=== PATIENT | female | born 2000 | race Two or more races ===

== ENCOUNTER 2022-08-26 16:08 | Outpatient (REF) | payer OTHER, SELFPAY ==
[2022-08-26 16:22] LABS: MANUAL DIFF FLAG NO
[2022-08-26 17:56] LABS: Basophils Percent Auto 0.4 % (0-2); Eosinophils Absolute Auto 0.1 X10*3/uL (0.0-0.4); Eosinophils Percent Auto 1.1 % (0-4); Hematocrit 39.6 % (37.0-47.0); Hemoglobin 13.1 g/dl (12.0-16.0); Imm Gran Abs Auto 0.01 X10*3/uL (0.00-0.03); Imm Gran Pct Auto 0.2 % (0.0-0.4); Lymphocytes Absolute Auto 2.2 X10*3/uL (1.2-4.9); Lymphocytes Percent Auto 38.7 % (20-40); Mean Corpuscular HGB Conc 33.1 g/dl (31.0-35.0); Mean Corpuscular Hemoglobin 28.7 pg (27.0-33.0); Mean Corpuscular Volume 86.8 fL (80.0-98.0); Mean Platelet Volume 9.4 fL (9.4-12.3); Monocytes Absolute Auto 0.3 X10*3/uL (0.1-1.2); Monocytes Percent Auto 5.1 % (2-11); Neutrophils Absolute Auto 3.1 x10*3/uL (2.0-8.3); Neutrophils Percent Auto 54.5 % (45-73); Platelet Count 352 X10*3/uL (160-400); Red Blood Count 4.56 X10*6/uL (4.20-5.50); Red Cell Distribution Width 13.9 % (11.0-16.0); White Blood Count 5.6 X10*3/uL (4.8-10.8)
[2022-08-26 18:52] LABS: Alanine Aminotransferase 10 U/L (0-31); Anion Gap 14 (12-20); Aspartate Amino Transferase 15 U/L (5-31); Blood Urea Nitrogen 13 mg/dL (9-16); Calcium 9.3 mg/dL (8.4-10.2); Carbon Dioxide 22 mmol/L (22-29); Chloride 108 mmol/L (96-108); Cholesterol 125 mg/dL; Estimated Glomerular Filt Rate > 60; Glucose Fasting 83 mg/dL (60-99); HDL Cholesterol 45 mg/dL; Iron 106 mcg/dL (30-160); LDL Cholesterol Calculated 66 mg/dl; Percent Iron Saturation 24 % (15-50); Potassium 3.8 mmol/L (3.3-5.1); Sodium 140 mmol/L (135-145); Total Iron Binding Capacity 449 mcg/dL (228-428); Triglycerides 74 mg/dL; Unsaturated Iron Binding 343 ug/dL
[2022-08-26 18:54] LABS: Vitamin D 25-OH Total 21.1 ng/mL (>30)
[2022-08-27 05:32] LABS: HBS Num1 0.66 mIU/mL (0-7.99); HBc Num1 0.13 S/CO (0.00-0.79); HBsAGNum1 0.33 S/CO (0.00-0.99); Hepatitis B Core Antibody Nonreactive (Nonreactive); Hepatitis B Surface Antigen Negative (Negative); ~HepC Num1 0.16 S/CO (0.00-0.79); ~Hepatitis B Surface Antibody NONREACTIVE (Nonreactive); ~Hepatitis C Antibody Nonreactive (Nonreactive)
== END 2022-08-26 16:09 | disposition home or self-care (01) ==
LOC: HO.LAB 16:08
PROVIDERS: PCP Internal Medicine; Visit Provider Internal Medicine
DX: Z00.01 Encounter for general adult medical examination with abnormal findings (principal); D50.9 Iron deficiency anemia, unspecified; Z83.1 Family history of other infectious and parasitic diseases
CPT/HCPCS: 36415; 80048; 80061; 82306; 83540; 84450; 84460; 85025; 86704; 86706; 86803; 87340

== ENCOUNTER 2023-07-08 16:07 | Outpatient (REF) | payer OTHER, SELFPAY ==
[2023-07-09 14:06] LABS: Bacterial Vaginosis PCR NEGATIVE (Negative); Candida Group PCR DETECTED (Not Detect); Candida glab krusei PCR NOT DETECTED (Not Detect); Trichomonas vaginalis PCR NOT DETECTED (Not Detect)
[2023-07-09 14:50] LABS: CT PCR NOT DETECTED (Not Detect.); NG PCR NOT DETECTED (Not Detect.)
== END 2023-07-08 16:08 | disposition home or self-care (01) ==
LOC: HO.LAB 16:07
PROVIDERS: Visit Provider Internal Medicine
DX: Z11.3 Encounter for screening for infections with a predominantly sexual mode of transmission (principal)
CPT/HCPCS: 0352U; 0353U

== ENCOUNTER 2023-07-08 16:07 | Outpatient (AMB) | payer OTHER, SELFPAY ==
[2023-07-08 16:21] VITALS: BP 112/66; PULSE 82; TEMP 36.6; O2SAT 98
--- NOTE | 2023-07-08 16:21 | AM.OFFWIN_ITS ---
Intake Vital Signs 07/08/23 16:21 Height 4 ft 10 in BP 112/66 Blood Pressure Location Rt brachial Position Sitting Pulse 82 Pulse Source Pulse Oximeter Temp 97.9 F Temp Source Oral Pulse Oximetry (%) 98 Intake Visit Reasons: EP STD check, bacterial infection Intake Note: pt is here for std check, possible bacterial infection requesting full STD panel Patient Tobacco Use Status: Former Tobacco user Allergies No Known Allergies Allergy (Verified 07/10/23 04:48) Medication List - Last Reconciled 07/10/23 by Lester Jung MD fluconazole 150 mg PO Q3D 2 doses Do you need a note to return to daycare/school/sports/work: No HPI EP STD check, bacterial infection HPI Details 22 yr old female presents to the office for a sick visit. Pt requests a test for STD. She has been sexually active with a single partner. Heterosexual. Not using protection. Last week, she was at another Urgent Care and tested negative for BV. She recvd and completed a 7 day course of metronidazole. Currently, reporting symptoms of burning sensation near the vaginal area. No discharge. [facility] Medical History On Depo-Provera for contraception Microcytic anemia Family history of hepatitis B Skin lesion of left upper extremity Family History (Updated 08/05/22 @ 00:39 by Jami Glasgow MD) Mother Hepatitis B Social History Housing: House Patient Tobacco Use Status: Former Tobacco user e-Cigarette/Vaping Use: Never Used service: No Current occupation: [employer] leave Cognitive needs: No Hearing needs: No Vision needs: Yes Female Reproductive History Menstrual Age of Menarche: 14 Physical Exam Vital Signs: Last Vital Signs Temp 97.9 F 07/08/23 16:21 Pulse 82 07/08/23 16:21 BP 112/66 07/08/23 16:21 Pulse Ox 98 07/08/23 16:21 Assessment & Plan Assessment & Plan (1) Dysuria: Code(s): R30.0 - Dysuria Plan: A screening panel for STI ordered. Based on the results medications will be started. Coding Level of Care Code Est Pt Level 3 (22879) Diagnoses Dysuria R30.0
== END 2023-07-08 17:04 | disposition home or self-care (01) ==
PROVIDERS: PCP Internal Medicine; Visit Provider Internal Medicine
DX: R30.0 Dysuria (principal)
CPT/HCPCS: 99213

== ENCOUNTER 2023-07-30 11:23 | Outpatient (AMB) | payer OTHER, SELFPAY ==
--- NOTE | 2023-07-30 11:25 | A.OFFPC_ITS ---
Vital Signs 07/30/23 11:30 Height 4 ft 10 in Weight 160 lb BMI 33.4 BP 118/70 Blood Pressure Location Rt brachial Position Sitting Pulse 93 Pulse Source Pulse Oximeter Pulse Oximetry (%) 98 Oxygen Delivery Method Room Air Intake Visit Reasons: PE Intake Note: pt is here for annual PE. Has not had pap Allergies No Known Allergies Allergy (Verified 07/30/23 16:49) Medication List - Last Reconciled 07/30/23 by Jami Glasgow MD valacyclovir 1,000 mg PO BID PRN Tobacco use date assessed: 07/30/23 Dental Screening Dental Screen Date: 07/30/23 Did you have a dental visit in the last 12 months?: No Did you have a dental problem in the last 6 months where you did not have access to dental care?: No Was dental information given to patient?: No HPI PE HPI Details 22-year-old lady, new to practice, here to establish care with new provider. She was recently seen at the ER at [facility] 07/09/2023 complaining of vaginal irritation and diagnosed to have genital herpes. She was prescribed valacyclovir 1000 mg twice a day for 10 days STI screening came back negative for syphilis HIV, gonorrhea chlamydia , but is positive for bacterial vaginosis. Patient states that the lesion in her vaginal area has completely resolved. She is sexually active, does not use any barrier contraceptive. Was on Depo- Provera but had it discontinued 5 months ago as she gained approximately 40 lb i n the last 8 months. Goes to [facility] for her routine Pap and pelvic exam and that is also who she delivered her 1st child last year. Complains of intermittent episode of posterior neck and up per back pain, worse with standing or bending for extended periods of time. This has been present now for the last several months ever since she started gaining weight, no history of trauma. [facility] Medical History (Updated 07/30/23 @ 16:58 by Jami Glasgow MD) Upper back pain Obesity (BMI 30.0-34.9) History of herpes simplex type 2 infection On Depo-Provera for contraception Microcytic anemia Family history of hepatitis B Surgical History (Updated 07/30/23 @ 11:36 by Aj Palomares CMA) No pertinent past surgical history Family History Mother Hepatitis B Social History Housing: House Patient Tobacco Use Status: Never used Tobacco e-Cigarette/Vaping Use: Never Used service: No Current occupational status: unemployed Current occupational exposures/hazards: No Cognitive needs: No Hearing needs: No Vision needs: Yes Female Reproductive History Menstrual Age of Menarche: 14 Date of last menstrual period: 07/06/23 Questionnaire PHQ-9 Over the last 2 weeks, how often have you been bothered by any of the following problems? 1. Little interest or pleasure in doing things: not at all 2. Feeling down, depressed, or hopeless: not at all 3. Trouble falling or staying asleep, or sleeping too much: not at all 4. Feeling tired or having little energy: not at all 5. Poor appetite or overeating: not at all 6. Feeling bad about yourself - or that you are a failure or have let yourself or your family down: not at all 7. Trouble concentrating on things, such as reading the newspaper or watching television: not at all 8. Moving or speaking so slowly that other people could have noticed. Or the o pposite - being so fidgety or restless that you have been moving around a lot more than usual: not at all 9. Thoughts that you would be better off or of hurting yourself in some way: not at all Total score: 0 Depression Screening Interpretation: Negative Depression Screening Done: Yes 36722 - PHQ-9 Billing: Yes Source: Developed by Drs. Dino Arreaga, Ines Villarreal, Sukhdev Wolfe and colleagues, with an educational carmen from [employer] Thrive Questionnaire Date Thrive assessed: 07/30/23 I am a: Patient What is your living situation today?: I have a steady place to live Within the past 12 months, did the food you bought not last and you didn't have the money to get more?: Never true Within the past 12 months, did you worry whether your food would run out before you got money to buy more?: Never true Do you have trouble paying for medicines?: No Do you have trouble getting transportation to medical appointments?: No Do you have trouble paying your heating and electricity bill?: No Do you have trouble taking care of your child, family member or friend?: No Do you have trouble with day-to-day activities such as bathing, preparing meals, shopping, managing finances, etc.?: No Are you currently unemployed and looking for a job?: No Are you interested in more education?: No Please select the resources that you would like help with: None Currently or been in a relationship where the following occur: no concerns reported THRIVE Score: 0 AUDIT C Alcohol Use Questionnaire (AUDIT-C) 1. How often do you have a drink containing alcohol?: 2-4 times a month 2. How many drinks containing alcohol do you have on a typical day when you are drinking?: 1 or 2 3. How often do you have six or more drinks on one occasion?: Never Total Score: 2 Score Reviewed/Action Taken: No LIV-7 AMB Questionnaire LIV-7 Date LIV - 7 assessed: 07/30/23 Feeling nervous, anxious, or on edge: 0 = Not at all Not being able to stop or control worryin = Not at all Worrying too much about different things: 0 = Not at all Trouble relaxin = Not at all Being so restless that it is hard to sit still: 0 = Not at all Becoming easily annoyed or irritable: 0 = Not at all Feeling afraid as if something awful might happen: 0 = Not at all Total LIV-7 score (0-4 normal; 5-9 mild; 10-14 moderate; 15-21 severe): 0 Source: Developed by Drs. Dino Arreaga, Ines Villarreal, Sukhdev Wolfe and colleagues, with an educational carmen from [employer] LIV-7 Assessment Billing LIV-7 Assessment Tool: LIV-7 Assessment 58349 Review of Systems Const Denies fatigue, Denies fever(s), Denies headache(s) and Denies weakness Eyes Details: Goes to [facility] Reports requires corrective lenses ENT Denies dizziness, Denies headache(s), Denies nasal congestion and Denies nasal discharge Card Denies chest pain, Denies lightheadedness, Denies palpitations and Denies dyspnea Resp Denies chest congestion, Denies cough, Denies dyspnea and Denies wheezing GI Denies abdominal pain, Denies change in bowel habits and Denies heartburn Denies hematuria, Denies urinary frequency, Denies dysuria and Denies urinary urgency Musc Reports no additional complaints Skin/Breast Reports as per HPI, Denies breast pain, Denies breast mass and Denies rash Neuro Denies dizziness, Denies headache(s) and Denies weakness Psych Reports no additional complaints Endo Denies fatigue, Denies polydipsia, Denies polyuria and Denies palpitations Boo/Lymph Denies easy bruising Aller/Immun Denies seasonal rhinorrhea and Denies wheezing Physical exam (Primary Care) Vital Signs: Last Vital Signs Pulse 93 07/30/23 11:30 BP 118/70 07/30/23 11:30 Pulse Ox 98 07/30/23 11:30 Oxygen Delivery Method Room Air 07/30/23 11:30 BMI result Body Mass Index 33.4 Tobacco/Smoking Status: Tobacco use Status Tobacco use date assessed 07/30/23 07/30/23 11:38 Patient Tobacco Use Status Never used Tobacco 07/30/23 11:38 e-Cigarette/Vaping Use Never Used 07/30/23 11:25 PHQ-9: PHQ-9 Score PHQ-9: Total score 0 07/30/23 12:20 Depression Screening Interpretation: Negative Thrive Assessment: Date of Thrive Assessment Date Thrive assessed 07/30/23 07/30/23 11:38 Currently or been in a relationship where the following occur: no concerns reported Const General: comfortable, no acute distress and Physically active Nutritional Appearance: obese Orientation/consciousness: patient oriented x3 HENMT Head: Yes normocephalic Ears: external ears normal, TM's normal bilaterally and EAC's normal General nose exam: Normal external nose present Face and sinus: Yes face symmetric Mouth: Normal oral and palatal mucosa present, lip normal, tongue normal, oropharynx normal and moist mucous membranes Eyes General: appearance normal, both eyes and all related structures Eyelids: Yes eyelids normal Conjunctivae: conjunctivae normal Sclerae: sclerae normal Pupils: Equal, round and reactive pupils present EOM: EOMs intact bilaterally Neck Neck: Yes full ROM, Yes no lymphadenopathy and Yes supple Thyroid: Thyroid normal Chest Breast/axilla inspection: Other (Bilateral nipple piercing) Resp Effort & Inspection: normal respiratory effort and able to speak in complete sentences Auscultation: clear to auscultation bilaterally Cardio Rate: regular rate Rhythm: regular rhythm Heart sounds: S1 normal heart sound present and S2 normal heart sound present GI Palpation (GI): Soft to palpation, nontender, no guarding and no masses Auscultation: normal bowel sounds General: Yes no CVA tenderness Back/Spine/Pelvis Back: no CVA tenderness and No back tenderness Skin Other: Multiple tattoos on back, upper chest, arms General skin exam: no rashes or lesions noted Neuro General: patient oriented x3 Cranial nerves: Yes Equal, round and reactive pupils present Cognition (Neuro): normal cognition Gait exam (Neuro): Normal gait present Motor exam (neuro): 5/5 motor strength present throughout Extrem General: Yes normal to inspection, Yes full ROM, Yes no joint enlargement, Yes no pedal edema and Yes normal gait Psych Appearance: grossly normal and well kempt Mental Status: mental status grossly normal Speech and movement: Normal speech and movement present Affect: normal affect Attitude: cooperative Thought process: Normal thought process present Thought content: Normal thought content present Assessment and Plan Assessment & Plan (1) Annual visit for general adult medical examination with abnormal findings: Code(s): Z00.01 - Encounter for general adult medical examination with abnormal findings Plan: Will check appropriate labs. Recommended dental visit every 6 months and regular eye exams, at least every 2 years, wears glasses for distance. Take adequate calcium in diet and vitamin-D 3 at 2000 IU per cap once a day, in addition to weight-bearing exercises to help maintain good muscle tone and weight control. Instructed to do self-breast exam, and recommended to get yearly mammogram, starting at age 40. Patient will be [facility] to schedule her routine pelvic exam and Pap smear. (2) History of herpes simplex type 2 infection: Code(s): Z86.19 - Personal history of other infectious and parasitic diseases Plan: Positive for herpes genitalis type 2 on test done at [facility], already treated with valacyclovir 1000 mg twice a day for 10 days, currently asymptomatic (3) Family history of hepatitis B: Code(s): Z83.1 - Family history of other infectious and parasitic diseases Plan: Will check hepatitis-B and C profile (4) Obesity (BMI 30.0-34.9): Code(s): E66.9 - Obesity, unspecified Plan: . Discussed need to increase activity and weight reduction. Recommended focusing on improving health instead of dieting. Mediterranean diet is a healthy diet that helps, limit food high in fat, sugar, and calories. Eat slowly, pay attention to portion sizes, plan your meals ahead of time, start regular physical activity, at least 150 minutes of moderate intensity exercise, or 90 minutes per week of vigorous exercise. Avoid alcohol use. Keeping a food diary, tracking what you eat and your physical activity can help assess what improvements you can make. There are many health problems associated with being overweight/obese, so it is important to improve your diet and exercise. There are medications and surgical options available, but Lifestyle changes are the 1st step. (5) Upper back pain: Code(s): M54.9 - Dorsalgia, unspecified Plan: X-ray of thoracic spine ordered, referred for physical therapy, strongly advised to lose weight through diet and exercise Orders: Orders PT Evaluation and Treatment Today M54.50 - Low back pain, unspecified Comprehensive [place]. Panel Fast Today E66.9 - Obesity, unspecified, Z83.1 - Family history of other infectious and parasitic diseases, Z86.19 - Personal history of other infectious and parasitic diseases Lipid Panel Today E66.9 - Obesity, unspecified, Z83.1 - Family history of other infectious and parasitic diseases, Z86.19 - Personal history of other infectious and parasitic diseases Hepatitis B,C Profile Today E66.9 - Obesity, unspecified, Z83.1 - Family history of other infectious and parasitic diseases, Z86.19 - Personal history of other infectious and parasitic diseases Vitamin D 25-OH Total Today E66.9 - Obesity, unspecified, Z83.1 - Family history of other infectious and parasitic diseases, Z86.19 - Personal history of other infectious and parasitic diseases XR thoracic spine 3V Today M54.9 - Dorsalgia, unspecified Coding Level of Care Code Est Pt Level 3 (70521) New Pt Prev Care 18-39yr(29065 Diagnoses Annual visit for general adult medical examination with abnormal findings Z00.01 History of herpes simplex type 2 infection Z86.19 Family history of hepatitis B Z83.1 Obesity (BMI 30.0-34.9) E66.9 Upper back pain M54.9 Additional Codes LIV-7 Assessment Billing - LIV-7 Assessment Tool: LIV-7 Assessment 51485 ([id number])
[2023-07-30 11:30] VITALS: BP 118/70; PULSE 93; O2SAT 98; BMI 33.4
== END 2023-07-30 12:32 | disposition home or self-care (01) ==
PROVIDERS: PCP Internal Medicine; Visit Provider Internal Medicine
DX: Z00.01 Encounter for general adult medical examination with abnormal findings (principal); M54.9 Dorsalgia, unspecified; E66.9 Obesity, unspecified; Z68.34 Body mass index [BMI] 34.0-34.9, adult; Z86.19 Personal history of other infectious and parasitic diseases; Z83.1 Family history of other infectious and parasitic diseases
CPT/HCPCS: 99213; 99395

== ENCOUNTER 2023-07-30 12:35 | Outpatient (REF) | payer OTHER, SELFPAY ==
--- NOTE | ~2023-07-30 | XR_ITS ---
EXAMINATION: XR THORACIC SPINE CLINICAL INFORMATION: Back pain. COMPARISON: None available. TECHNIQUE: 3 views of the thoracic spine were obtained. FINDINGS: Mild dextroscoliosis of the thoracic spine. Mild multilevel degenerative changes in the thoracic spine. XR/XR thoracic spine 3V IMPRESSION: Mild dextroscoliosis of the thoracic spine. Mild multilevel degenerative changes in the thoracic spine.
[2023-07-30 16:50] LABS: Alanine Aminotransferase 118 U/L (0-31); Albumin Level 4.3 g/dL (3.5-5.0); Alkaline Phosphatase 190 U/L (39-117); Anion Gap 11 (12-20); Aspartate Amino Transferase 79 U/L (5-31); Bilirubin Total 1.1 mg/dL (0.0-1.0); Blood Urea Nitrogen 14 mg/dL (9-16); Calcium 9.4 mg/dL (8.4-10.2); Carbon Dioxide 26 mmol/L (22-29); Chloride 107 mmol/L (96-108); Cholesterol 140 mg/dL (<200); Estimated Glomerular Filt Rate > 60; Glucose Fasting 100 mg/dL (60-99); HDL Cholesterol 42 mg/dL (>40); LDL Cholesterol Calculated 64 mg/dL (<100); Potassium 4.1 mmol/L (3.3-5.1); Sodium 140 mmol/L (135-145); Total Protein 7.5 g/dL (6.5-8.0); Triglycerides 172 mg/dL (<150)
[2023-07-30 16:57] LABS: Vitamin D 25-OH Total 15.3 ng/mL (>30)
[2023-07-31 03:46] LABS: HBS Num1 0.79 mIU/mL (0-7.99); HBc Num1 0.26 S/CO (0.00-0.79); HBsAGNum1 0.21 S/CO (0.00-0.99); Hepatitis B Core Antibody Nonreactive (Nonreactive); Hepatitis B Surface Antigen Negative (Negative); ~HepC Num1 0.18 S/CO (0.00-0.79); ~Hepatitis B Surface Antibody NONREACTIVE (Nonreactive); ~Hepatitis C Antibody Nonreactive (Nonreactive)
== END 2023-07-30 12:36 | disposition home or self-care (01) ==
LOC: HO.HMGCX 12:35
PROVIDERS: PCP Internal Medicine; Visit Provider Internal Medicine
DX: Z86.19 Personal history of other infectious and parasitic diseases (principal); Z83.1 Family history of other infectious and parasitic diseases; E66.9 Obesity, unspecified; M54.9 Dorsalgia, unspecified
CPT/HCPCS: 36415; 72072; 80053; 80061; 82306; 86704; 86706; 86803; 87340

== ENCOUNTER 2024-03-01 08:31 | Outpatient (AMB) | payer OTHER, SELFPAY ==
[2024-03-01 08:32] VITALS: BP 102/70; PULSE 84; O2SAT 98; BMI 34.7
--- NOTE | 2024-03-01 08:32 | A.OFFPC_ITS ---
Vital Signs 03/01/24 08:32 Height 4 ft 10 in Weight 166 lb BMI 34.7 BP 102/70 Blood Pressure Location Rt brachial Position Sitting Pulse 84 Pulse Source Pulse Oximeter Pulse Oximetry (%) 98 Oxygen Delivery Method Room Air Intake Visit Reasons: Stress incontinence, weight gain Intake Note: Pt is here today c/o stress incontinence Allergies No Known Allergies Allergy (Verified 03/01/24 09:00) Medication List - Last Reconciled 03/01/24 by Jami Glasgow MD No Known Home Meds Tobacco use date assessed: 03/01/24 Dental Screening Dental Screen Date: 03/01/24 Did you have a dental visit in the last 12 months?: No Did you have a dental problem in the last 6 months where you did not have access to dental care?: No Was dental information given to patient?: Patient has dentist HPI HPI Comments History of Present Illness Details - The patient is a 23-year-old female pr esenting with weight management and dietary concerns. She Previously was 120 pounds before in 2022 and now is at166 lbs after , and has been having hard time losing weight.. She states that after her she was able to lose weight but gained it back again after she was started on Depo Provera.. she stopped taking it after 1 year but was unable to lose the weight. The patient reports skipping meals and has stopped consuming soda and juices. - Stress urinary incontinence occurs dur ing coughing or sneezing, beginning , and persists due to weight gain. The patient currently getting physical therapy for back pain and they have included Kegel exercises. - The patient experiences heartburn, whi ch is potentially related to dietary habits and weight. [facility] Medical History (Updated 03/01/24 @ 23:23 by Jami Glasgow MD) Stress incontinence in female Upper back pain Obesity (BMI 30.0-34.9) History of herpes simplex type 2 infection Microcytic anemia Family history of hepatitis B Surgical History No pertinent past surgical history Family History Mother Hepatitis B Social History Housing: House Patient Tobacco Use Status: Never used Tobacco e-Cigarette/Vaping Use: Never Used service: No Current occupational status: unemployed Current occupational exposures/hazards: No Cognitive needs: No Hearing needs: No Vision needs: Yes Female Reproductive History Menstrual Age of Menarche: 14 Questionnaire Thrive Questionnaire Date Thrive assessed: 07/30/23 LIV-7 AMB Questionnaire LIV-7 Date LIV - 7 assessed: 07/30/23 Source: Developed by Drs. iDno Arreaga, Ines Villarreal, Sukhdev Wolfe and colleagues, with an educational carmen from [employer]. Review of Systems Const Reports as per HPI and Reports no additional complaints Physical exam (Primary Care) Vital Signs: Last Vital Signs Pulse 84 03/01/24 08:32 BP 102/70 03/01/24 08:32 Pulse Ox 98 03/01/24 08:32 Oxygen Delivery Method Room Air 03/01/24 08:32 BMI result Body Mass Index 34.7 Tobacco/Smoking Status: Tobacco use Status Tobacco use date assessed 03/01/24 03/01/24 08:40 Patient Tobacco Use Status Never used Tobacco 03/01/24 08:33 e-Cigarette/Vaping Use Never Used 03/01/24 08:33 Thrive Assessment: Date of Thrive Assessment Date Thrive assessed 07/30/23 03/01/24 08:33 Const General: comfortable and no acute distress Nutritional Appearance: obese Orientation/consciousness: patient oriented x3 HENMT Head: Yes normocephalic Ears: external ears normal, TM's normal bilaterally and EAC's normal General nose exam: Normal external nose present Face and sinus: Yes face symmetric Mouth: Normal oral and palatal mucosa present, oropharynx normal and moist mucous membranes Eyes General: appearance normal, both eyes and all related structures Neck Neck: Yes full ROM, Yes no lymphadenopathy and Yes supple Thyroid: Thyroid normal Resp Effort & Inspection: normal respiratory effort and able to speak in complete sentences Auscultation: clear to auscultation bilaterally Cardio Rate: regular rate Rhythm: regular rhythm Heart sounds: S1 normal heart sound present and S2 normal heart sound present GI Inspection: Yes obesity Palpation (GI): Soft to palpation, nontender, no guarding and no masses Auscultation: normal bowel sounds General: Yes no CVA tenderness Back/Spine/Pelvis Back: no CVA tenderness and No back tenderness Skin Other: Multiple tattoos on back, upper chest, arms General skin exam: no rashes or lesions noted Neuro General: patient oriented x3 Cognition (Neuro): normal cognition Gait exam (Neuro): Normal gait present Motor exam (neuro): 5/5 motor strength present throughout Extrem General: Yes normal to inspection, Yes full ROM, Yes no joint enlargement, Yes no pedal edema and Yes normal gait Psych Appearance: grossly normal and well kempt Mental Status: mental status grossly normal Speech and movement: Normal speech and movement present Affect: normal affect Attitude: cooperative Thought process: Normal thought process present Thought content: Normal thought content present Coding Level of Care Code Est Pt Level 3 (39406) Diagnoses Obesity (BMI 30.0-34.9) E66.9 Stress incontinence in female N39.3 Assessment & Plan Assessment & Plan (1) Obesity (BMI 30.0-34.9): Code(s): E66.9 - Obesity, unspecified Category: Medical (2) Stress incontinence in female: Code(s): N39.3 - Stress incontinence (female) (male) Category: Medical Plan The treatment plan includes initiating phentermine therapy with thorough monitoring for adverse effects and emphasizing the need for a balanced diet and regular meals. I discussed with the patient the initiation of phentermine at 15 mg daily and explained potential side effects such as headaches, chest pain, and palpitations. Emphasized the importance of not skipping meals and avoiding sugary drinks. I explained that stress urinary incontinence likely results from weight gain , and continuing physical therapy and weight reduction efforts should help mitigate symptoms. For heartburn, I advised avoiding acidic foods, especially at night. I recommended seeing a retail store associate for further assistance with dietary management. We scheduled a follow-up in four weeks to evaluate her progress. Patient was informed and verbally consented to the use of an ambient scribe for clinic note documentation during this visit. Medications: New phentermine must administer 2 hours after breakfast 15 mg PO DAILY 30 caps 1RF E66.9 - Obesity, unspecified
== END 2024-03-01 09:46 | disposition home or self-care (01) ==
PROVIDERS: PCP Internal Medicine; Visit Provider Internal Medicine
DX: E66.9 Obesity, unspecified (principal); N39.3 Stress incontinence (female) (male); Z68.34 Body mass index [BMI] 34.0-34.9, adult

== ENCOUNTER → 2024-03-01 08:31 | Outpatient (BNVA) | payer OTHER, SELFPAY | PROVIDERS: PCP Internal Medicine; Visit Provider Internal Medicine | DX: E66.9 Obesity, unspecified (principal); N39.3 Stress incontinence (female) (male) | CPT/HCPCS: 99212 ==

== ENCOUNTER 2024-03-03 14:55 | Outpatient (RCR) | payer OTHER, SELFPAY ==
--- NOTE | 2024-01-26 17:50 | MHC.PT.EP ---
[facility] [place] Office [place] Office [place] Office [address] Zepeda [address] [phone] F: [phone] F: [phone] F: [phone] F: [phone] Physical Therapy Plan of Care Date of Evaluation: 01/26/24 Date of Surgery: Diagnosis: Low back pain; lumbago (per MD) Chronic upper back and neck pain, mild scoliosis thoracic spine (PT Dx) Assessment: Maria M is a 23 yo female who was referred by Veronica Gray PA-C for Dx of Low back pain; lumbago. PT diagnosis is upper back and neck pain with mild scoliosis of thoracic spine. Impairments include painful neck and shoulder ROM, hypomobile T/spine, TTP UT and rhomboids, and rounded shoulder posture resulting in their inability to sit or stand for long periods of time and lift or carry heavy objects. 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 Pt will benefit from skilled PT to address impairments and meet their goals. Frequency and Duration: The patient will be seen 2x/week for 4 weeks Short Term Goals: 2 weeks Patient will be able to perform HEP to independently manage condition. Patient will demonstrate neutral shoulder posture during sitting to decrease pain after 15 min. Immigration Judge Goals: 4 weeks Patient will decrease pain to 2/10 with cervical rotation to be able to drive without pain. Patient will increase rhomboids b/l MMT to 4-/5 to be able to sit for 30 min without pain. Treatment Plan: Modalities to reduce pain, spasms and effusion. Manual therapy to restore motion and function. Therapeutic exercise to improve strength and flexibility. Neuromuscular re-education for posture and balance. Therapeutic activities to return to functional activities of daily living. Electronically signed by: Karli Urban, PT, DPT Please sign and return to therapist. Thank you for your referral.
--- NOTE | 2024-04-19 10:54 | MHC.PT.DC ---
[facility] [place] Office [place] Office [place] Office [address] Maria M Zepeda [address] [phone] F: [phone] F: [phone] F: [phone] F: [phone] Physical Therapy Discharge Report Diagnosis: Low back pain; lumbago (per MD) Chronic upper back and neck pain, mild scoliosis thoracic spine (PT Dx) Date of Surgery: Date of Evaluation: 01/26/24 Date of Discharge: 04/19/24 Treatments to Date: 5 Cancellations to Date: 3 No Shows to Date: 1 Discharge Status: Improved Function Independent with HEP Patient Elected to Stop Discharge Summary: Maria M was last treated in PT on 03/03/24 and the assessment reads, Maria M does well with exercise program, added exercises for strengthening and endurance of mid back and postural musculature. She was able to tolerate increased time on cervical traction and increased wt of pull to therapeutic level. She reports her neck feels good to end session but mid back is still sore. She ceased attending PT on her own accord and is therefore discharged from PT at this time. Electronically signed by: Karli Urban, PT, DPT Please sign and return to therapist. Thank you for your referral.
== END 2024-04-19 10:55 | disposition home or self-care (01) ==
LOC: HO.PT 14:55
PROVIDERS: PCP Internal Medicine; Visit Provider Internal Medicine
DX: M54.50 Low back pain, unspecified (principal)
CPT/HCPCS: 97012; 97110; 97140; 97161; 97530; 97535

== ENCOUNTER 2024-03-31 10:50 | Outpatient (AMB) | payer OTHER, SELFPAY ==
--- NOTE | 2024-03-31 10:53 | A.OFFPC_ITS ---
Vital Signs 03/31/24 10:58 Height 4 ft 10 in Weight 164 lb BMI 34.3 BP 110/60 Blood Pressure Location Lt brachial Position Sitting Respiration 16 Pulse 73 Pulse Source Pulse Oximeter Temp 98.1 F Temp Source Oral Pulse Oximetry (%) 99 Oxygen Delivery Method Room Air Intake Visit Reasons: 4 week follow up weight, per [place] Intake Note: Pt is here today for a 4wks f/u weight Allergies No Known Allergies Allergy (Verified 03/31/24 11:05) Medication List - Last Reconciled 03/31/24 by Jami Glasgow MD phentermine 15 mg PO DAILY Tobacco use date assessed: 03/31/24 Dental Screening Dental Screen Date: 03/01/24 HPI 4 week follow up weight, per [place] HPI Details 23-year-old lady here today for follow-u p regarding her weight loss. She was started on phentermine 15 mg 1 capsule daily a month ago and already has been seen for dietary guidance with emergency services director. She has been compliant with taking her medications and has been following recommended diet, tolerating medication well, blood has lost only 2 lb in 1 month [facility] Medical History Stress incontinence in female Upper back pain Obesity (BMI 30.0-34.9) History of herpes simplex type 2 infection Microcytic anemia Family history of hepatitis B Surgical History No pertinent past surgical history Family History Mother Hepatitis B Social History Housing: House Patient Tobacco Use Status: Never used Tobacco e-Cigarette/Vaping Use: Never Used service: No Current occupational status: unemployed Current occupational exposures/hazards: No Cognitive needs: No Hearing needs: No Vision needs: Yes Female Reproductive History Menstrual Age of Menarche: 14 Questionnaire PHQ-9 Over the last 2 weeks, how often have you been bothered by any of the following problems? 1. Little interest or pleasure in doing things: not at all 2. Feeling down, depressed, or hopeless: not at all 3. Trouble falling or staying asleep, or sleeping too much: not at all 4. Feeling tired or having little energy: not at all 5. Poor appetite or overeating: not at all 6. Feeling bad about yourself - or that you are a failure or have let yourself or your family down: not at all 7. Trouble concentrating on things, such as reading the newspaper or watching television: not at all 8. Moving or speaking so slowly that other people could have noticed. Or the opposite - being so fidgety or restless that you have been moving around a lot more than usual: not at all 9. Thoughts that you would be better off or of hurting yourself in some way: not at all Total score: 0 Depression Screening Interpretation: Negative Depression Screening Done: Yes 97048 - PHQ-9 Billing: Yes Source: Developed by Drs. Dino Arreaga, Ines Villarreal, Sukhdev Wolfe and colleagues, with an educational carmen from [employer]. Thrive Questionnaire Date Thrive assessed: 07/30/23 I am a: Patient What is your living situation today?: I have a steady place to live Within the past 12 months, did the food you bought not last and you didn't have the money to get more?: Never true Within the past 12 months, did you worry whether your food would run out before you got money to buy more?: Never true Do you have trouble paying for medicines?: No Do you have trouble getting transportation to medical appointments?: No Do you have trouble paying your heating and electricity bill?: No Do you have trouble taking care of your child, family member or friend?: No Do you have trouble with day-to-day activities such as bathing, preparing meals, shopping, managing finances, etc.?: No Are you currently unemployed and looking for a job?: No Are you interested in more education?: No Please select the resources that you would like help with: None Currently or been in a relationship where the following occur: No concerns reported THRIVE Score: 0 AUDIT C Alcohol Use Questionnaire (AUDIT-C) 1. How often do you have a drink containing alcohol?: 2-4 times a month 2. How many drinks containing alcohol do you have on a typical day when you are drinking?: 1 or 2 3. How often do you have six or more drinks on one occasion?: Less than monthly Total Score: 3 Score Reviewed/Action Taken: No LIV-7 AMB Questionnaire LIV-7 Date LIV - 7 assessed: 07/30/23 Feeling nervous, anxious, or on edge: 0 = Not at all Not being able to stop or control worryin = Not at all Worrying too much about different things: 0 = Not at all Trouble relaxin = Not at all Being so restless that it is hard to sit still: 0 = Not at all Becoming easily annoyed or irritable: 0 = Not at all Feeling afraid as if something awful might happen: 0 = Not at all Total LIV-7 score (0-4 normal; 5-9 mild; 10-14 moderate; 15-21 severe): 0 Source: Developed by Drs. Dino Arreaga, Ines Villarreal, Sukhdev Wolfe and colleagues, with an educational carmen from [employer]. Physical exam (Primary Care) Vital Signs: Last Vital Signs Temp 98.1 F 03/31/24 10:58 Pulse 73 03/31/24 10:58 Resp 16 03/31/24 10:58 BP 110/60 03/31/24 10:58 Pulse Ox 99 03/31/24 10:58 Oxygen Delivery Method Room Air 03/31/24 10:58 BMI result Body Mass Index 34.3 Tobacco/Smoking Status: Tobacco use Status Tobacco use date assessed 03/31/24 03/31/24 11:01 Patient Tobacco Use Status Never used Tobacco 03/31/24 10:57 e-Cigarette/Vaping Use Never Used 03/31/24 10:57 PHQ-9: PHQ-9 Score PHQ-9: Total score 0 03/31/24 10:57 Depression Screening Interpretation: Negative Thrive Assessment: Date of Thrive Assessment Date Thrive assessed 07/30/23 03/31/24 10:57 Currently or been in a relationship where the following occur: No concerns reported Const General: comfortable and no acute distress Nutritional Appearance: obese Orientation/consciousness: patient oriented x3 HENMT Head: Yes normocephalic Ears: external ears normal General nose exam: Normal external nose present Face and sinus: Yes face symmetric Mouth: Normal oral and palatal mucosa present and moist mucous membranes Neck Neck: Yes full ROM, Yes no lymphadenopathy and Yes supple Thyroid: Thyroid normal Resp Effort & Inspection: normal respiratory effort and able to speak in complete sentences Auscultation: clear to auscultation bilaterally Cardio Rate: regular rate Rhythm: regular rhythm Heart sounds: S1 normal heart sound present and S2 normal heart sound present GI Inspection: Yes obesity Palpation (GI): Soft to palpation, nontender, no guarding and no masses Auscultation: normal bowel sounds Back/Spine/Pelvis Back: No back tenderness Skin Other: Multiple tattoos on back, upper chest, arms General skin exam: no rashes or lesions noted Neuro General: patient oriented x3 Cognition (Neuro): normal cognition Gait exam (Neuro): Normal gait present Motor exam (neuro): 5/5 motor strength present throughout Extrem General: Yes normal to inspection, Yes full ROM, Yes no joint enlargement, Yes no pedal edema and Yes normal gait Psych Appearance: grossly normal and well kempt Mental Status: mental status grossly normal Speech and movement: Normal speech and movement present Affect: normal affect Attitude: cooperative Thought process: Normal thought process present Thought content: Normal thought content present Coding Level of Care Code Est Pt Level 3 (43204) Diagnoses Obesity (BMI 30.0-34.9) E66.9 Additional Codes PHQ-9 - 11008 - PHQ-9 Billing: Yes ([id number]) Assessment & Plan Assessment & Plan (1) Obesity (BMI 30.0-34.9): Code(s): E66.9 - Obesity, unspecified Category: Medical Plan: Patient currently on phentermine 15 mg daily with no side effects reported from taking the medication but no significant change in appetite or weight loss noted. Will increase dose to 30 mg to be taken once a day 2 hours after breakfast. Follow recommended diet given by emergency services director, and do regular cardio exercises at least 15 minutes daily. Will see her back for follow-up in 2 months Medications: New phentermine must administer 2 hours after breakfast 30 mg PO DAILY 30 caps 2RF
[2024-03-31 10:58] VITALS: BP 110/60; PULSE 73; RESP 16; TEMP 36.7; O2SAT 99; BMI 34.3
--- OUTSIDE RECORDS SUMMARY | 2024-03-31 11:36 | XMS_ITS | Clinical Summary ---
Author Organization [employer] [facility] it Address [address] [place] [address] Care Team Providers Care Desulfurizer Hand Name Role Phone Unavailable Primary Care Provider Unavailabl e Social History Tobacco Use Types Packs/Day Years Used Date Smoking Tobacco: Never Assessed Comments Unknown Sex and Gender Information Value Date Recorded Sex Assigned at Not on file Legal Sex Female 8:06 PM EST Gender Identity Not on file Sexual Orientation Not on file Plan of Treatment Health Maintenance Due Date Last Done Comments Gonorrhea/Chlamydia Screening 2002 HPV Vaccines (1 - 3-dose series) 2017 Meningococcal B Vacine (1 of 2 - Standard) 2018 DTaP,Tdap,and Td Vaccines (1 - Tdap) 2021 Hepatitis B Vaccines (1 of 3 - 19+ 3-dose series) 2021 Annual Well Child Visit (3-2 1 years old) 03/06/2023 Depression Screening 03/06/2023 HIV Screening 03/06/2023 Hepatitis C Screening 03/06/2023 Social Influencers of Health Screening 03/06/2023 Cervical Cancer Screening: P ap Smear 10/09/2023 COVID-19 Vaccine ( - 2023-2 5 season) 2023 Influenza Vaccine (#1) 2023 HIB Vaccines Aged Out No longer eligi ble based on patient's age to complete this topic Hepatitis A Vaccines Aged Out No long er eligible based on patient's age to complete this topic IPV Vaccines Aged Out No longer eligi ble based on patient's age to complete this topic MMR Vaccines Aged Out No longer eligi ble based on patient's age to complete this topic Meningococcal ACWY Vaccine Aged Out N o longer eligible based on patient's age to complete this topic Pneumococcal Vaccine: Pediat rics (0 to 5 Years) and At-Risk Patients (6 to 64 Years) Aged Out No longer eligible b ased on patient's age to complete this topic RSV Immunization Patients Un landry 20 months Aged Out No longer eligible b ased on patient's age to complete this topic Varicella Vaccines Aged Out No longer eligible based on patient's age to complete this topic
== END 2024-03-31 11:18 | disposition home or self-care (01) ==
PROVIDERS: PCP Internal Medicine; Visit Provider Internal Medicine
DX: E66.9 Obesity, unspecified (principal); Z68.34 Body mass index [BMI] 34.0-34.9, adult

== ENCOUNTER → 2024-03-31 10:50 | Outpatient (BNVA) | payer OTHER, SELFPAY | PROVIDERS: PCP Internal Medicine; Visit Provider Internal Medicine | DX: E66.9 Obesity, unspecified (principal); Z68.34 Body mass index [BMI] 34.0-34.9, adult; Z71.3 Dietary counseling and surveillance | CPT/HCPCS: 96127; 99212 ==

== ENCOUNTER → 2024-06-30 15:39 | Outpatient (BNVA) | payer MEDICAID, SELFPAY | PROVIDERS: PCP Internal Medicine; Visit Provider Internal Medicine | DX: Z13.89 Encounter for screening for other disorder (principal) ==

== ENCOUNTER 2024-08-21 11:45 | Outpatient (REF) | payer OTHER, SELFPAY ==
[2024-08-21 13:47] LABS: Hematocrit 38.6 % (37.0-47.0); Hemoglobin 12.9 g/dl (12.0-16.0)
[2024-08-21 14:07] LABS: Alanine Aminotransferase 175 U/L (0-31); Albumin Level 4.8 g/dL (3.5-5.0); Alkaline Phosphatase 177 U/L (39-117); Anion Gap 11 (12-20); Aspartate Amino Transferase 144 U/L (5-31); Blood Urea Nitrogen 14 mg/dL (9-16); Calcium 9.8 mg/dL (8.4-10.2); Carbon Dioxide 26 mmol/L (22-29); Chloride 108 mmol/L (96-108); Cholesterol 155 mg/dL (<200); Estimated Glomerular Filt Rate > 60; HDL Cholesterol 48 mg/dL (>40); Potassium 4.1 mmol/L (3.3-5.1); Sodium 141 mmol/L (135-145); Total Protein 7.7 g/dL (6.5-8.0); Triglycerides 120 mg/dL (<150)
== END 2024-08-21 11:46 | disposition home or self-care (01) ==
LOC: HO.HMGCLDS 11:45
PROVIDERS: PCP Internal Medicine; Visit Provider Internal Medicine
DX: E66.9 Obesity, unspecified (principal); Z13.220 Encounter for screening for lipoid disorders; Z13.1 Encounter for screening for diabetes mellitus; R74.01 Elevation of levels of liver transaminase levels
CPT/HCPCS: 36415; 80053; 80061; 82306; 85014; 85018

== ENCOUNTER 2024-08-23 12:25 | Outpatient (AMB) | payer OTHER, SELFPAY ==
--- NOTE | 2024-08-23 12:23 | MHC.PC.OV ---
Vital Signs 08/23/24 12:46 Height 4 ft 10 in Weight 164 lb BMI 34.3 BP 108/60 Blood Pressure Location Rt brachial Position Sitting Respiration 15 Pulse 81 Pulse Source Pulse Oximeter Temp 98.3 F Temp Source Oral Pulse Oximetry (%) 99 Oxygen Delivery Method Room Air Intake Visit Reasons: Annual PE Intake Note: Pt is here today for her PE Is last menstrual period known: Yes Last menstrual period: 08/20/24 Allergies No Known Allergies Allergy (Verified 08/23/24 13:06) Medication List - Last Reconciled 08/23/24 by Jami Glasgow MD No Known Home Meds Tobacco use date assessed: 08/23/24 Dental Screening Dental Screen Date: 08/23/24 Did you have a dental visit in the last 12 months?: No Did you have a dental problem in the last 6 months where you did not have access to dental care?: No Was dental information given to patient?: Patient declined HPI Annual PE HPI Details 31-year-old lady here today for physical exam. Goes to [facility], diagnosed with dysplasia of cervix , low-grade in 2023, but has not yet been seen for follow-up appointment this year. She had recent fasting labs done which showed electrolytes, renal function, fasting glucose, lipids and vitamin-D level are within normal limits, but liver enzymes are markedly elevated. Patient drinks Tequila , average 6 shots, 2 to 3 times a week. Denies any heartburn symptoms, no change in bowel habits, no blood in stool, abdominal pain. Has a rough nodular lesion on her side of her left thumb which she would like removed. This has been present now for the last several months, nontender but getting bigger in size [facility] Medical History Alcohol use disorder Elevated liver enzymes Dysplasia of cervix, low grade (MARK 1) Obesity (BMI 30.0-34.9) History of herpes simplex type 2 infection Family history of hepatitis B Surgical History No pertinent past surgical history Family History Mother Hepatitis B Social History Housing: House Patient Tobacco Use Status: Never used Tobacco e-Cigarette/Vaping Use: Never Used service: No Current occupational status: unemployed Current occupational exposures/hazards: No Cognitive needs: No Hearing needs: No Vision needs: Yes Female Reproductive History Menstrual Age of Menarche: 14 Date of last menstrual period: 08/20/24 control method: none Questionnaire PHQ-9 Over the last 2 weeks, how often have you been bothered by any of the following problems? Depression Screening Interpretation: Negative Depression Screening Done: Yes Source: Developed by Drs. Dino Arreaga, Ines Villarreal, Sukhdev Wolfe and colleagues, with an educational carmen from [employer]. Thrive Questionnaire Date Thrive assessed: 03/31/24 I am a: Patient What is your living situation today?: I have a steady place to live Within the past 12 months, did the food you bought not last and you didn't have the money to get more?: Never true Within the past 12 months, did you worry whether your food would run out before you got money to buy more?: Never true Do you have trouble paying for medicines?: No Do you have trouble getting transportation to medical appointments?: No Do you have trouble paying your heating and electricity bill?: No Do you have trouble taking care of your child, family member or friend?: No Do you have trouble with day-to-day activities such as bathing, preparing meals, shopping, managing finances, etc.?: No Are you currently unemployed and looking for a job?: No Are you interested in more education?: No Please select the resources that you would like help with: None Currently or been in a relationship where the following occur: No concerns reported THRIVE Score: 0 AUDIT C Alcohol Use Questionnaire (AUDIT-C) 1. How often do you have a drink containing alcohol?: 2-3 times a week (tequila about 6 shots at a time) Total Score: 3 LIV-7 AMB Questionnaire LIV-7 Date LIV - 7 assessed: 07/30/23 Source: Developed by Drs. Dino Arreaga, Ines Villarreal, Sukhdev Wolfe and colleagues, with an educational carmen from [employer]. Review of Systems Const Denies fatigue, Denies fever(s), Denies headache(s) and Denies weakness Eyes Details: Goes to [facility], has myopia Reports requires corrective lenses ENT Denies dizziness, Denies headache(s), Denies nasal congestion and Denies nasal discharge Card Denies chest pain, Denies lightheadedness, Denies palpitations and Denies dyspnea Resp Denies chest congestion, Denies cough, Denies dyspnea and Denies wheezing GI Denies abdominal pain, Denies change in bowel habits and Denies heartburn Denies hematuria, Denies urinary frequency, Denies genital lesions, Denies dysuria, Denies pelvic pain, Denies urinary urgency, Denies vaginal discharge and Denies vaginal pruritus Musc Reports no additional complaints Skin/Breast Reports as per HPI, Denies breast pain, Denies breast mass and Denies rash Neuro Denies dizziness, Denies headache(s) and Denies weakness Psych Reports no additional complaints Endo Denies fatigue, Denies polydipsia, Denies polyuria and Denies palpitations Boo/Lymph Denies easy bruising Aller/Immun Denies seasonal rhinorrhea and Denies wheezing Physical exam (Primary Care) Vital Signs: Last Vital Signs Temp 98.3 F 08/23/24 12:46 Pulse 81 08/23/24 12:46 Resp 15 08/23/24 12:46 BP 108/60 08/23/24 12:46 Pulse Ox 99 08/23/24 12:46 Oxygen Delivery Method Room Air 08/23/24 12:46 BMI result Body Mass Index 34.3 Tobacco/Smoking Status: Tobacco use Status Tobacco use date assessed 08/23/24 08/23/24 12:49 Patient Tobacco Use Status Never used Tobacco 08/23/24 12:23 e-Cigarette/Vaping Use Never Used 08/23/24 12:23 Depression Screening Interpretation: Negative Thrive Assessment: Date of Thrive Assessment Date Thrive assessed 03/31/24 08/23/24 12:23 Currently or been in a relationship where the following occur: No concerns reported Const General: comfortable and no acute distress Nutritional Appearance: obese Orientation/consciousness: patient oriented x3 HENMT Head: Yes normocephalic Ears: external ears normal General nose exam: Normal external nose present Face and sinus: Yes face symmetric Mouth: Normal oral and palatal mucosa present and moist mucous membranes Neck Neck: Yes full ROM, Yes no lymphadenopathy and Yes supple Thyroid: Thyroid normal Resp Effort & Inspection: normal respiratory effort and able to speak in complete sentences Auscultation: clear to auscultation bilaterally Cardio Rate: regular rate Rhythm: regular rhythm Heart sounds: S1 normal heart sound present and S2 normal heart sound present GI Inspection: Yes obesity Palpation (GI): Soft to palpation, nontender, no guarding and no masses Auscultation: normal bowel sounds Back/Spine/Pelvis Back: No back tenderness Skin Other: Raised lesion on side of left thumb General skin exam: no rashes or lesions noted Neuro General: patient oriented x3 Cognition (Neuro): normal cognition Gait exam (Neuro): Normal gait present Motor exam (neuro): 5/5 motor strength present throughout Extrem General: Yes normal to inspection, Yes full ROM, Yes no joint enlargement, Yes no pedal edema and Yes normal gait Psych Appearance: grossly normal and well kempt Mental Status: mental status grossly normal Speech and movement: Normal speech and movement present Affect: normal affect Attitude: cooperative Thought process: Normal thought process present Thought content: Normal thought content present Results Reviewed Results Reviewed: Name: Maria M Brownlee Age/Sex: 23/F : 2000 Unit#: [id number] Attend Dr: Jami Glasgow MD Re08/21/24 Status: DEP REF Location: [facility] Disch: SPEC : [id number] MATTHIEU: 08/21/24-1205 STATUS: COMP REQ : [id number] RECD: 08/21/24-[address]: Jami Glasgow MD COMP: 08/21/24-1423 ENTERED: 08/21/24-[address]: ORDERED: CMP Fast, Lipid Panel, Vitamin D 25-OH Test Result Flag Reference Sodium 141 135-145 mmol/L Potassium 4.1 3.3-5.1 mmol/L CL 108 96-108 mmol/L CO2 26 22-29 mmol/L Gap 11 L 12-20 BUN 14 9-16 mg/dL Creat 0.64 0.5-1.4 mg/dL eGFR > 60 Chronic Kidney Disease: Estimated GFR < 60 mL/min/1.73m2 Severe Kidney Disease: Estimated GFR < 15 mL/min/1.73m2 FBS 92 60-99 mg/dL CA 9.8 8.4-10.2 mg/dL Total Bili 0.5 0.0-1.0 mg/dL AST (GOT) 144 H 5-31 U/L ALT (GPT) 175 H 0-31 U/L Protein, Total 7.7 6.5-8.0 g/dL Alb 4.8 3.5-5.0 g/dL Triglyceride 120 <150 mg/dL Desirable Triglyceride: less than 150 mg/dL Borderline High Triglyceride 150-199 mg/dL High Triglyceride: 200-499 mg/dL Very High Triglyceride: greater than or equal to 5OO mg/dL Cholesterol 155 <200 mg/dL Desirable Cholesterol: less than 200 mg/dL Borderline High Cholesterol: 200-239 mg/dL High Cholesterol: greater than 239 mg/dL LDL Calculated 83 <100 mg/dL Desirable LDL: less than 100 mg/dL Near Optimal/Above Optimal LDL: 110-129 mg/dL Borderline High LDL: 130-159 mg/dL High LDL: 160-189 mg/dL Very High LDL: greater than or equal to 190 mg/dL HDL 48 >40 mg/dL Desirable HDL: greater than 40 mg/dL Note: This HDL assay may give artificially low results in patients with liver disease. Alk Phos 177 H 39-117 U/L Vitamin D 25-OH 37.1 >30 ng/mL Health Based Reference Values* < 20 ng/mL Deficient 20-30 ng/mL Insufficient > 30 ng/mL Sufficient Laboratory Tests 08/21/24 12:05 Hgb 12.9 Hct 38.6 Coding Level of Care Code Est Pt Prev Care 18-39y(82926) Diagnoses Annual visit for general adult medical examination with abnormal findings Z00.01 Dysplasia of cervix, low grade (MARK 1) N87.0 Elevated liver enzymes R74.8 Alcohol use disorder F10.90 Encounter for screening examination for sexually transmitted infection Z11.3 Lesion of thumb L98.9 Obesity (BMI 30.0-34.9) E66.9 Assessment & Plan Assessment & Plan (1) Annual visit for general adult medical examination with abnormal findings: Code(s): Z00.01 - Encounter for general adult medical examination with abnormal findings Plan: Results of recent fasting labs reviewed with patient. Liver enzymes are markedly elevated. Advised to abstain from any alcohol intake, ultrasound of abdomen ordered, has been checked for hepatitis-B and C all come back negative but she is also negative for hepatitis-B surface antibody, patient unsure whether she received hepatitis-B vaccine. Advised dental prophylaxis every 6 months and yearly eye exam at least every 2 years, goes to [facility]. Reminded to get her yearly flu vaccine and COVID booster, up-to-date. Advised to get vaccinated against hepatitis-B (2) Dysplasia of cervix, low grade (MARK 1): Comment: Goes to [facility], diagnosed on 12/15/2023 Code(s): N87.0 - Mild cervical dysplasia Category: Medical Plan: Seen at [facility], will schedule another appointment for follow-up (3) Elevated liver enzymes: Code(s): R74.8 - Abnormal levels of other serum enzymes Category: Medical Plan: Ultrasound abdomen ordered. Strongly advised to abstain from alcohol intake. (4) Alcohol use disorder: Code(s): F10.90 - Alcohol use, unspecified, uncomplicated Category: Medical Plan: Alcohol at risk education done (5) Encounter for screening examination for sexually transmitted infection: Code(s): Z11.3 - Encounter for screening for infections with a predominantly sexual mode of transmission Plan: CT NG by PCR Vag/Cerv screening ordered (6) Lesion of thumb: Code(s): L98.9 - Disorder of the skin and subcutaneous tissue, unspecified Plan: Referral to [facility] dermatology (7) Obesity (BMI 30.0-34.9): Code(s): E66.9 - Obesity, unspecified Category: Medical Plan: Your BMI is above the ideal range. . Discussed need to increase activity and weight reduction. Recommended focusing on improving health instead of dieting. Mediterranean diet is a healthy diet that helps, limit food high in fat, sugar, and calories, abstain from alcohol intake which is also a calorie. Eat slowly, pay attention to portion sizes, plan your meals ahead of time, start regular physical activity, at least 150 minutes of moderate intensity exercise per week Orders: Orders CT NG by PCR Vag/Cerv 08/23/24 Z11.3 - Encounter for screening for infections with a predominantly sexual mode of transmission Liver Panel 08/23/24 F10.90 - Alcohol use, unspecified, uncomplicated, R74.8 - Abnormal levels of other serum enzymes US abdomen complete 08/23/24 F10.90 - Alcohol use, unspecified, uncomplicated, R74.8 - Abnormal levels of other serum enzymes Referrals Dermatology Referral L98.9 - Disorder of the skin and subcutaneous tissue, unspecified 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
[2024-08-23 12:46] VITALS: BP 108/60; PULSE 81; RESP 15; TEMP 36.8; O2SAT 99; BMI 34.3
--- OUTSIDE RECORDS SUMMARY | 2024-08-23 13:21 | XMS_ITS | Clinical Summary ---
Author Organization [facility] it Address [address] [place] [address] Care Team Providers Care Legal Clerk Name Role Phone Unavailable Primary Care Provider [...] (1 - 3-dose series) 2017 Meningococcal B Vaccine (1 o f 2 - Standard) 2018 DTaP,Tdap,and Td Vaccines (1 - Tdap) 2021 Hepatitis B Vaccines (1 of 3 - 19+ 3-dose series) 2021 Annual Well Child Visit (3-2 1 years old) 03/06/2023 Depression Screening 03/06/2023 HIV Screening 03/06/2023 Hepatitis C Screening 03/06/2023 Social Influencers of Health Screening 03/06/2023 Cervical Cancer Screening: P ap Smear 10/09/2023 COVID-19 Vaccine (1 - 2023-2 5 season) 2023 Influenza Vaccine (#1) 2024 HIB Vaccines Aged Out No longer eligi [...] 5 Years) and At-Risk Patients (6 to 49 Years) Aged Out No longer eligible b ased on patient's age to complete this topic RSV Immunization Patients Un landry 20 months Aged Out No longer eligible b ased on patient's age to complete this topic Varicella Vaccines Aged Out No longer eligible based on patient's age to complete this topic
== END 2024-08-23 13:30 | disposition home or self-care (01) ==
LOC: HO.HMCC 12:26
PROVIDERS: PCP Internal Medicine; Visit Provider Internal Medicine
DX: Z00.01 Encounter for general adult medical examination with abnormal findings (principal); N87.0 Mild cervical dysplasia; E66.9 Obesity, unspecified; Z68.34 Body mass index [BMI] 34.0-34.9, adult; R74.8 Abnormal levels of other serum enzymes; F10.90 Alcohol use, unspecified, uncomplicated; Z11.3 Encounter for screening for infections with a predominantly sexual mode of transmission; L98.9 Disorder of the skin and subcutaneous tissue, unspecified

== ENCOUNTER 2024-08-23 12:25 | Outpatient (REF) | payer OTHER, SELFPAY ==
[2024-08-23 17:35] LABS: Alanine Aminotransferase 137 U/L (0-31); Albumin Level 4.5 g/dL (3.5-5.0); Alkaline Phosphatase 173 U/L (39-117); Aspartate Amino Transferase 94 U/L (5-31); Total Protein 7.3 g/dL (6.5-8.0)
[2024-08-24 10:25] LABS: CT PCR NOT DETECTED (Not Detect.); NG PCR NOT DETECTED (Not Detect.)
== END 2024-08-23 12:26 | disposition home or self-care (01) ==
LOC: HO.HMGCLDS 12:25
PROVIDERS: PCP Internal Medicine; Visit Provider Internal Medicine
DX: Z00.01 Encounter for general adult medical examination with abnormal findings (principal); N87.0 Mild cervical dysplasia; R74.8 Abnormal levels of other serum enzymes; F10.90 Alcohol use, unspecified, uncomplicated; L98.9 Disorder of the skin and subcutaneous tissue, unspecified; E66.9 Obesity, unspecified; Z68.34 Body mass index [BMI] 34.0-34.9, adult; Z11.3 Encounter for screening for infections with a predominantly sexual mode of transmission
CPT/HCPCS: 36415; 80076; 87491; 87591; 99395

== ENCOUNTER 2024-08-23 14:00 | Outpatient (REF) | payer OTHER, SELFPAY | END 2024-08-23 14:01 | disposition home or self-care (01) | LOC: HO.LAB 14:00 | PROVIDERS: Visit Provider Internal Medicine | DX: Z13.89 Encounter for screening for other disorder (principal) ==

== ENCOUNTER 2024-09-01 11:48 | Outpatient (REF) | payer OTHER, SELFPAY ==
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
== END 2024-09-01 11:49 | disposition home or self-care (01) ==
LOC: HO.HMGCX 11:48
PROVIDERS: PCP Internal Medicine; Visit Provider Physician Assistant
DX: R10.9 Unspecified abdominal pain (principal); V89.2XXA Person injured in unspecified motor-vehicle accident, traffic, initial encounter
CPT/HCPCS: 71046

== ENCOUNTER 2024-09-01 11:48 | Outpatient (AMB) | payer OTHER, SELFPAY ==
[2024-09-01 11:59] VITALS: BP 122/72; PULSE 90; TEMP 36.9; O2SAT 99; BMI 33.9
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
--- OUTSIDE RECORDS SUMMARY | 2024-09-01 12:37 | XMS_ITS | Clinical Summary ---
Author Organization [facility] it Address [address] [place] [address] Care Team Providers Care Planetarium Sky Show Technician Name Role Phone Unavailable Primary Care Provider [...] Child Visit (3-2 1 years old) 03/06/2023 HIV Screening 03/06/2023 Hepatitis C Screening 03/06/2023 Social Influencers of Health Screening 03/06/2023 Cervical Cancer Screening: P ap Smear 10/09/2023 COVID-19 Vaccine (1 - 2023-2 5 season) 2023 Depression Screening 02/11/2024 Influenza Vaccine (#1) 2024 HIB Vaccines Aged [...]
== END 2024-09-01 13:44 | disposition home or self-care (01) ==
PROVIDERS: PCP Internal Medicine; Visit Provider Physician Assistant
DX: R10.9 Unspecified abdominal pain (principal); V89.2XXA Person injured in unspecified motor-vehicle accident, traffic, initial encounter; Z04.3 Encounter for examination and observation following other accident

== ENCOUNTER → 2024-09-01 13:29 | Outpatient (BNV) | payer OTHER, SELFPAY | PROVIDERS: PCP Internal Medicine; Visit Provider Radiology Diagnostic Radiology | DX: S20.159A Superficial foreign body of breast, unspecified breast, initial encounter (principal) | CPT/HCPCS: 71046 ==

== ENCOUNTER 2024-09-22 10:02 | Outpatient (REF) | payer OTHER, SELFPAY ==
--- NOTE | ~2024-09-22 | US_ITS ---
CLINICAL HISTORY: R74.8 - Abnormal levels of other serum enzymes US abdomen complete Comparison: None provided Findings: The visualized pancreas is normal. The visualized aorta and inferior vena cava are normal caliber. The liver is normal in size, right lobe length is 15.3 cm. Moderately increased echogenicity of liver parenchyma, no discrete lesion is visualized in the imaged liver. No intrahepatic bile duct dilatation. The common duct is 5 mm in diameter. Physiologic distention of the gallbladder, shadowing mobile stone noted, no gallbladder wall thickening, negative sonographic Chang's sign. The main portal vein is patent with antegrade flow. The right kidney is normal, 10.0 cm in length. The left kidney is normal, 9.8 cm in length. The spleen is normal, 10.3 cm in length. No free fluid in the abdomen. Impression: 1. Cholelithiasis without acute inflammation. 2. Echogenic liver parenchyma is non-specific, commonly seen in the setting of steatosis or parenchymal liver disease. This document has been electronically signed by: Anastasiia Abarca MD on 09/22/2024 16:28:14
--- OUTSIDE RECORDS SUMMARY | 2024-09-22 10:40 | XMS_ITS | Clinical Summary ---
Author Organization [facility] it Address [address] [place] [address] Care Team Providers Care Die Cutting Machine Operator Name Role Phone Unavailable Primary Care Provider [...]
== END 2024-09-22 10:03 | disposition home or self-care (01) ==
LOC: HO.HMGCX 10:02
PROVIDERS: PCP Internal Medicine; Visit Provider Internal Medicine
DX: R74.8 Abnormal levels of other serum enzymes (principal); F10.90 Alcohol use, unspecified, uncomplicated
CPT/HCPCS: 76700

== ENCOUNTER → 2024-09-22 10:08 | Outpatient (BNV) | payer OTHER, SELFPAY | PROVIDERS: PCP Internal Medicine; Visit Provider Radiology Diagnostic Radiology | DX: K80.20 Calculus of gallbladder without cholecystitis without obstruction (principal) | CPT/HCPCS: 76700 ==

== ENCOUNTER 2024-11-15 15:21 | Outpatient (AMB) | payer OTHER, SELFPAY ==
--- NOTE | 2024-11-15 15:27 | MHC.PC.OV ---
Vital Signs 11/15/24 15:31 Height 4 ft 10 in Weight 164 lb BMI 34.3 BP 108/64 Blood Pressure Location Rt brachial Position Sitting Respiration 16 Pulse 74 Pulse Source Pulse Oximeter Temp 98.1 F Temp Source Oral Pulse Oximetry (%) 98 Oxygen Delivery Method Room Air Intake Visit Reasons: wgt loss med Intake Note: Pt is here today for her low loss option Allergies No Known Allergies Allergy (Verified 11/15/24 15:41) Medication List - Last Reconciled 11/15/24 by Jami Glasgow MD No Known Home Meds Tobacco use date assessed: 11/15/24 Dental Screening Dental Screen Date: 11/15/24 Did you have a dental visit in the last 12 months?: No Did you have a dental problem in the last 6 months where you did not have access to dental care?: No Was dental information given to patient?: Patient declined HPI wgt loss med HPI Details The patient is a 24-year-old female presenting with concerns regarding weight management. She has a body mass index (BMI) of 34, which qualifies her for obesity management interventions. Previously, she attempted weight loss with phentermine, initially prescribed at 15 mg and later increased to 30 mg, but discontinued due to lack of significant weight loss and moderate appetite suppression. The patient reports decreased food intake, avoiding a lot of processed foods and junk food. 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 Her weight has increased from 162 to 164 pounds despite these efforts. An abdominal ultrasound revealed cholelithiasis, with small gallstones floating in the gallbladder, but no bile duct obstruction was noted. The patient has been advised to follow a low-cholesterol diet to manage this condition and avoid exacerbation. COUNTS INCLUDE 234 BEDS AT THE [facility] Medical History Cholelithiasis Alcohol use disorder Elevated liver enzymes Dysplasia of cervix, low grade (MARK 1) Obesity (BMI 30.0-34.9) History of herpes simplex type 2 infection Family history of hepatitis B Surgical History No pertinent past surgical history Family History Mother Hepatitis B Social History Housing: House Patient Tobacco Use Status: Never used Tobacco e-Cigarette/Vaping Use: Never Used service: No Current occupational status: unemployed Current occupational exposures/hazards: No Cognitive needs: No Hearing needs: No Vision needs: Yes Female Reproductive History Menstrual Age of Menarche: 14 Questionnaire Thrive Questionnaire Date Thrive assessed: 07/30/23 I am a: Patient What is your living situation today?: I have a steady place to live Within the past 12 months, did the food you bought not last and you didn't have the money to get more?: Never true Within the past 12 months, did you worry whether your food would run out before you got money to buy more?: Never true Do you have trouble paying for medicines?: No Do you have trouble getting transportation to medical appointments?: No Do you have trouble paying your heating and electricity bill?: No Do you have trouble taking care of your child, family member or friend?: No Do you have trouble with day-to-day activities such as bathing, preparing meals, shopping, managing finances, etc.?: No Are you currently unemployed and looking for a job?: No Are you interested in more education?: No Please select the resources that you would like help with: None Currently or been in a relationship where the following occur: No concerns reported THRIVE Score: 0 LIV-7 AMB Questionnaire LIV-7 Date LIV - 7 assessed: 07/30/23 Source: Developed by Drs. Dino Arreaga, Ines Villarreal, Sukhdev Wolfe and colleagues, with an educational carmen from [employer]. Review of Systems Const All systems reviewed & are unremarkable except as noted in HPI and below Physical exam (Primary Care) Vital Signs: Last Vital Signs Temp 98.1 F 11/15/24 15:31 Pulse 74 11/15/24 15:31 Resp 16 11/15/24 15:31 BP 108/64 11/15/24 15:31 Pulse Ox 98 11/15/24 15:31 Oxygen Delivery Method Room Air 11/15/24 15:31 BMI result Body Mass Index 34.3 Tobacco/Smoking Status: Tobacco use Status Tobacco use date assessed 10/06/25 10/06/25 15:35 Patient Tobacco Use Status Never used Tobacco 11/15/24 15:29 e-Cigarette/Vaping Use Never Used 11/15/24 15:29 Thrive Assessment: Date of Thrive Assessment Date Thrive assessed 07/30/23 11/15/24 15:29 Currently or been in a relationship where the following occur: No concerns reported Const General: comfortable and no acute distress Nutritional Appearance: obese Orientation/consciousness: patient oriented x3 HENMT Head: Yes normocephalic General nose exam: Normal external nose present Face and sinus: Yes face symmetric Mouth: moist mucous membranes Neck Neck: Yes full ROM, Yes no lymphadenopathy and Yes supple Thyroid: Thyroid normal Resp Effort & Inspection: normal respiratory effort and able to speak in complete sentences Auscultation: clear to auscultation bilaterally Cardio Rate: regular rate Rhythm: regular rhythm Heart sounds: S1 normal heart sound present and S2 normal heart sound present GI Inspection: Yes obesity Palpation (GI): Soft to palpation, nontender, no guarding, no masses and Other GI palpation findings present (Negative Chang's sign) Auscultation: normal bowel sounds Back/Spine/Pelvis Back: No back tenderness Skin General skin exam: no rashes or lesions noted Neuro General: patient oriented x3 Cognition (Neuro): normal cognition Gait exam (Neuro): Normal gait present Motor exam (neuro): 5/5 motor strength present throughout Extrem General: Yes normal to inspection, Yes full ROM, Yes no joint enlargement, Yes no pedal edema and Yes normal gait Psych Appearance: grossly normal and well kempt Mental Status: mental status grossly normal Speech and movement: Normal speech and movement present Affect: normal affect Coding Level of Care Code Est Pt Level 4 (54759) Diagnoses Obesity (BMI 30.0-34.9) E66.9 Cholelithiasis K80.20 Assessment & Plan Assessment & Plan (1) Obesity (BMI 30.0-34.9): Code(s): E66.9 - Obesity, unspecified Category: Medical (2) Cholelithiasis: Comment: Seen on ultrasound done September 2024, asymptomatic Code(s): K80.20 - Calculus of gallbladder without cholecystitis without obstruction Category: Medical Plan 1. Obesity The patient has a BMI of 34, qualifying her for obesity management. She has previously tried phentermine without significant success. Patient states that she called her insurance and they state that they will cover Ozempic and requesting that will try sending a prescription despite us know that it will not be covered due to her lack of comorbidities. Advised continued lifestyle modifications with the adherence to low-cholesterol diet and do at least a moderate intensity exercise daily. If medication is not approved, will try her back on phentermine together with diet and exercise 2. Cholelithiasis The patient has small gallstones without bile duct obstruction. She is advised to maintain a low-cholesterol diet to prevent exacerbation and to avoid alcohol consumption Patient was informed and verbally consented to the use of an ambient scribe for clinic note documentation during this visit. Medications: New Ozempic (semaglutide) Has tried phentermine in the past with no noticeable weight loss seen, despite taking this together with adhering to recommended diet and exercise 0.25 mg (0.368 mL) subcut QWEEK 3 mL 1RF 30 days NS E66.9 - Obesity, unspecified, R74.8 - Abnormal levels of other serum enzymes
[2024-11-15 15:31] VITALS: BP 108/64; PULSE 74; RESP 16; TEMP 36.7; O2SAT 98; BMI 34.3
== END 2024-11-15 16:34 | disposition home or self-care (01) ==
LOC: HO.HMCC 15:22
PROVIDERS: PCP Internal Medicine; Visit Provider Internal Medicine
DX: K80.20 Calculus of gallbladder without cholecystitis without obstruction (principal); E66.9 Obesity, unspecified; Z68.34 Body mass index [BMI] 34.0-34.9, adult

== ENCOUNTER → 2024-11-15 15:21 | Outpatient (BNVA) | payer OTHER, SELFPAY | PROVIDERS: PCP Internal Medicine; Visit Provider Internal Medicine | DX: K80.20 Calculus of gallbladder without cholecystitis without obstruction (principal); E66.9 Obesity, unspecified; Z68.34 Body mass index [BMI] 34.0-34.9, adult | CPT/HCPCS: 99212 ==